=== PATIENT | male | born 1945 | race Caucasian/White ===

== ENCOUNTER → 2020-03-27 10:49 | Outpatient (BNVA) | payer MEDICARE, OTHER, SELFPAY | PROVIDERS: PCP Student in an Organized Health Care Education/Training Program; Visit Provider Internal Medicine Rheumatology | DX: R76.8 Other specified abnormal immunological findings in serum (principal); M25.552 Pain in left hip; M25.562 Pain in left knee; Z79.899 Other long term (current) drug therapy; M19.041 Primary osteoarthritis, right hand; M19.042 Primary osteoarthritis, left hand; M25.50 Pain in unspecified joint; M16.12 Unilateral primary osteoarthritis, left hip | CPT/HCPCS: 36415; 73502; 73562; 80076; 82085; 82550; 82565; 85651; 86140; 99204 ==

== ENCOUNTER 2020-03-27 12:54 | Outpatient (CLI) | payer MEDICARE, OTHER, SELFPAY ==
--- NOTE | 2020-03-27 13:01 | XRR_ITS ---
PROCEDURE INFORMATION: Exam: XR Left Hip with Pelvis when Performed Exam date and time: 03/27/2020 1:04 PM Age: 74 years old Clinical indication: Hip pain; Left hip; Additional info: M25.559 - pain in unspecified hip TECHNIQUE: Imaging protocol: XR Left hip with pelvis when performed. Views: 2 or 3 views. COMPARISON: No relevant prior studies available. FINDINGS: Bones/joints: There is mild osteoarthritis. No acute fracture. Soft tissues: Unremarkable. XR/XR hip LT 2-3V wo/w pel* [id number] IMPRESSION: 1. Mild osteoarthritis 2. Negative for acute bony abnormality.
--- NOTE | 2020-03-27 13:01 | XRR_ITS ---
PROCEDURE INFORMATION: Exam: XR Left Knee Exam date and time: 03/27/2020 1:04 PM Age: 74 years old Clinical indication: Pain; Knee; Left; Additional info: M25.559 - pain in unspecified hip TECHNIQUE: Imaging protocol: XR Left knee. Views: 3 views. COMPARISON: No relevant prior studies available. FINDINGS: Bones/joints: Negative for acute bony abnormality Soft tissues: Normal. XR/XR knee LT 3V* [id number] IMPRESSION: No acute findings.
[2020-03-27 14:19] LABS: Alanine Aminotransferase 56 U/L (0-41); Albumin Level 4.2 g/dL (3.5-5.2); Alkaline Phosphatase 44 IU/L (40-130); Aspartate Amino Transferase 39 U/L (0-40); C Reactive Protein 0.6 mg/L (0.0-4.9); Creatine Phosphokinase 112 U/L (39-308); Globulin 3.2 g/dL (1.3-4.6); Total Bilirubin 0.6 mg/dL (0.15-1.2); Total Protein 7.4 g/dL (6.6-8.7)
[2020-03-27 16:43] LABS: Erythrocyte Sedimentation Rate 10 mm/hr (0-10)
[2020-03-28 12:28] LABS: COMPLEMENT, TOTAL (CH50) 60 U/mL (31-60)
[2020-03-28 12:58] LABS: Aldolase 5.9 U/L (< OR = 8.1)
[2020-03-28 15:33] LABS: COMPLEMENT COMPONENT C3C 121 mg/dL (82-185); COMPLEMENT COMPONENT C4C 17 mg/dL (15-53)
[2020-03-29 12:04] LABS: CENTROMERE B ANTIBODY <1.0 NEG AI (<1.0 NEG); JO-1 ANTIBODY <1.0 NEG AI (<1.0 NEG); RNP ANTIBODY <1.0 NEG AI (<1.0 NEG); SCL-70 ANTIBODY <1.0 NEG AI (<1.0 NEG); SJOGREN'S ANTIBODY (SS-A) <1.0 NEG AI (<1.0 NEG); SM ANTIBODY <1.0 NEG AI (<1.0 NEG); SS-B <1.0 NEG AI (<1.0 NEG)
[2020-03-29 16:09] LABS: THYROID PEROXIDASE ANTIBODIES 3 IU/mL (<9)
[2020-03-30 15:08] LABS: ANA PATTERN Nuclear, Homogeneous; ANA SCREEN, IFA POSITIVE (NEGATIVE)
[2020-03-31 01:18] LABS: DNA AB (DS) CRITHIDIA,IFA NEGATIVE (NEGATIVE)
== END 2020-03-27 12:55 | disposition home or self-care (01) ==
LOC: RAD 12:59
PROVIDERS: PCP Student in an Organized Health Care Education/Training Program; Visit Provider Internal Medicine Rheumatology
DX: M25.562 Pain in left knee (principal); R76.8 Other specified abnormal immunological findings in serum; M25.50 Pain in unspecified joint; Z79.899 Other long term (current) drug therapy; M16.12 Unilateral primary osteoarthritis, left hip
CPT/HCPCS: 36415; 73502; 73562; 80076; 82085; 82550; 82565; 85651; 86140

== ENCOUNTER → 2020-05-08 12:31 | Outpatient (BNVA) | payer MEDICARE, OTHER, SELFPAY | PROVIDERS: PCP Student in an Organized Health Care Education/Training Program; Visit Provider Internal Medicine Rheumatology | DX: M16.12 Unilateral primary osteoarthritis, left hip (principal); M19.041 Primary osteoarthritis, right hand; M19.042 Primary osteoarthritis, left hand; R76.8 Other specified abnormal immunological findings in serum | CPT/HCPCS: 99213 ==